=== PATIENT | male | born 1970 | race Caucasian/White ===

== ENCOUNTER 2022-02-19 01:33 | Emergency (ER) | payer BC, OTHER ==
[~2022-02-19] VITALS: Ht 177.8 cm; Wt 85.0 kg
[2022-02-19] MEDS ORDERED: NS 1,000 ML IV ONE (01:40)
[2022-02-19 02:34] LABS: BASO % 0.3 % (0.0-1.0); EOS % 0.3 % (0.0-3.0); HEMATOCRIT 44.9 % (42.0-52.0); HEMOGLOBIN 13.9 g/dl (13.5-17.5); LYMPH # 1.1 10^3/uL (1.5-5.0); LYMPH % 9.2 % (24.0-44.0); MEAN CORPUSCULAR HEMOGLOBIN 21.2 pg (27.0-33.0); MEAN CORPUSCULAR VOLUME 68.3 fl (80.0-96.0); MONO # 0.6 10^3/uL (0.0-0.8); MONO % 5.1 % (2.0-8.0); NEUTROPHILS # 9.9 10^3/uL (1.5-8.5); NEUTROPHILS % 84.7 % (36.0-66.0); PLATELET COUNT, AUTOMATED 304 10^3/uL (150-450); RED BLOOD COUNT 6.57 10^6/uL (4.30-6.10); WHITE BLOOD COUNT 11.7 10^3/uL (4.0-10.0)
[2022-02-19] MEDS ORDERED: KETOROLAC 30 MG/ML 1ML VIAL IV ONE (02:50)
[2022-02-19] MEDS ORDERED: ONDANSETRON 4MG 2ML VIAL IV ONE (02:50)
[2022-02-19 02:59] LABS: CK-MB VALUE MASS 1.2 NG/ML (<3.6); MB/CK RELATIVE INDEX 0.83 (< OR =4)
[2022-02-19 03:00] LABS: ALBUMIN 4.1 GM/DL (3.2-5.2); ALT/SGPT 30 U/L (12-78); BILIRUBIN,DIRECT 0.4 MG/DL (0.0-0.2); BILIRUBIN,TOTAL 0.7 MG/DL (0.2-1.0); BLOOD UREA NITROGEN 19 MG/DL (7-18); CALCIUM LEVEL 9.9 MG/DL (8.5-10.1); CARBON DIOXIDE LEVEL 30 MEQ/L (21-32); CHLORIDE LEVEL 106 MEQ/L (98-107); CREATININE FOR GFR 1.14 MG/DL (0.70-1.30); GLOMERULAR FILTRATION RATE > 60.0 (>56); GLUCOSE, FASTING 132 MG/DL (70-100); LIPASE 107 U/L (73-393); POTASSIUM SERUM 3.6 MEQ/L (3.5-5.1); SODIUM LEVEL 141 MEQ/L (136-145); TOTAL PROTEIN 6.6 GM/DL (6.4-8.2)
[2022-02-19] MEDS ORDERED: ISOVUE-370 76% 100ML VIAL As Ordered ONE (03:02)
[2022-02-19 04:34] LABS: AMPHETAMINES LEVEL URINE NEGATIVE (NEGATIVE); BARBITURATES URINE NEGATIVE (NEGATIVE); BENZODIAZEPINES URINE NEGATIVE (NEGATIVE); CANNABINOIDS URINE POSITIVE (NEGATIVE); COCAINE METABOLITE URINE NEGATIVE (NEGATIVE); METHADONE URINE NEGATIVE (NEGATIVE); OPIATES URINE NEGATIVE (NEGATIVE); PHENCYCLIDINE URINE NEGATIVE (NEGATIVE)
[2022-02-19] MEDS ORDERED: ONDA4TAB6 PO (05:34)
[2022-02-19 05:45] VITALS: BP 120/72
== END 2022-02-19 05:55 | disposition home or self-care (01) ==
LOC: M ED 01:33
DX: K52.9 Noninfective gastroenteritis and colitis, unspecified (principal); R94.31 Abnormal electrocardiogram [ECG] [EKG]; F12.10 Cannabis abuse, uncomplicated; Z88.9 Allergy status to unspecified drugs, medicaments and biological substances
CPT/HCPCS: 74177; 80048; 80076; 80307; 81001; 82550; 82553; 83605; 83690; 85025; 93005; 93041; 96361; 96374; 96375; 99284; J1885; J2405; Q9967